=== PATIENT | female | born 1990 | race African-American/Black ===

== ENCOUNTER 2023-09-20 13:02 | Emergency (ER) | payer MEDICAID ==
[~2023-09-20] VITALS: Ht 167.6 cm; Wt 99.0 kg
[2023-09-20 13:21] VITALS: BP 195/136; PULSE 87; RESP 20; TEMP 98.8; O2SAT 98
== END 2023-09-20 15:14 | disposition left against medical advice (07) ==
LOC: ER 13:02
DX: M85.661 Other cyst of bone, right lower leg (principal); I10 Essential (primary) hypertension; Z53.21 Procedure and treatment not carried out due to patient leaving prior to being seen by health care provider
CPT/HCPCS: 99281